=== PATIENT | female | born 1940 | race Caucasian/White ===

== ENCOUNTER 2022-03-22 03:07 | Emergency (ER) | payer MEDICARE, OTHER ==
[~2022-03-22] VITALS: Ht 167.6 cm; Wt 63.6 kg
[2022-03-22 03:12] VITALS: TEMP 97.4
[2022-03-22 06:00] VITALS: BP 139/84; PULSE 86
== END 2022-03-22 06:00 | disposition home or self-care (01) ==
LOC: COL.ER 03:07
DX: S09.90XA Unspecified injury of head, initial encounter (principal); S89.91XA Unspecified injury of right lower leg, initial encounter; W10.9XXA Fall (on) (from) unspecified stairs and steps, initial encounter
CPT/HCPCS: 31289; L1830; L1846